=== PATIENT | male | born 1960 | race Caucasian/White ===

== ENCOUNTER 2017-06-16 20:29 | Emergency (ER) | payer OTHER ==
[~2017-06-16] VITALS: Ht 172.7 cm; Wt 89.0 kg
[2017-06-16 20:32] VITALS: Ht 172.7 cm; Wt 89.0 kg
[2017-06-16] MEDS ORDERED: FLUORESCEIN STRIP BOTH EYES STA (21:03)
[2017-06-16] MEDS ORDERED: TETRACAINE 0.5% 4 ML OPH BOTH EYES ONE (21:30)
[2017-06-16] MEDS ORDERED: METHYLPREDNISOLONE 125 MG INJ IM ONE (21:30)
[2017-06-16] MEDS ORDERED: ERYT1OIN6 OP (21:34)
--- NOTE | 2017-06-16 23:35 | ERD ---
ER Documentation Chief Complaint Date/Time DATE: 06/16/17 TIME: 23:33 Chief Complaint possible allergic reaction from cactus, body itchiness, eye itchy, no sob HPI 56-year-old male presents to the emergency department complaining of lateral itchy eyes after he touched at 2 PM. Patient states that he got some of the cactus plant on his arms and it became very itchy and he thinks the fumes got into his eyes. Patient denies any other medications. Denies shortness of breath or chest pain ROS All systems reviewed and are negative except as per history of present illness. Medications Home Meds Active Scripts Erythromycin Base (Erythromycin) 1 Gm Oint...g., 1 INCH OP QID for 7 Days Prov:MICHELLE BAILEY PA-C 06/16/17 Allergies Allergies: Coded Allergies: No Known Allergy (Unverified , 06/16/17) PMhx/Soc Medical and Surgical Hx: pt denies Medical Hx, pt denies Surgical Hx Hx Alcohol Use: Yes Hx Substance Use: No Hx Tobacco Use: No Smoking Status: Never smoker Physical Exam Vitals Vital Signs Date Time Temp Pulse Resp B/P Pulse Ox O2 Delivery O2 Flow Rate FiO2 06/16/17 20:32 99.4 78 20 177/90 99 Physical Exam Const: Developed well-nourished no acute distress Head: Atraumatic Eyes: Erythematous conjunctiva bilaterally, no evidence of foreign body or fluorescein uptake on exam, throat pupils equal reactive to light, extraocular motions are intact ENT: Normal External Ears, Nose and Mouth. Neck: Full range of motion..~ No meningismus. Resp: Clear to auscultation bilaterally Cardio: Regular rate and rhythm, no murmurs Abd: Soft, non tender, non distended. Normal bowel sounds Skin: No petechiae or rashes Back: No midline or flank tenderness Ext: No cyanosis, or edema Neur: Awake and alert Psych: Normal Mood and Affect Results 24 hrs Current Medications Medications (Trade) Dose Ordered Sig/Mandy Route PRN Reason Start Time Stop Time Status Last Admin Dose Admin Methylprednisolone Sodium Succinate (Solu-Medrol) 125 mg ONCE ONCE IM 06/16/17 21:30 06/16/17 21:31 DC 06/16/17 21:05 Tetracaine HCl (Tetracaine 0.5% Steri-Unit Ceci) 1 drop ONCE ONCE BOTH EYES 06/16/17 21:30 06/16/17 21:31 DC Fluorescein Sodium ([id number]-[id number]) 1 strip ONCE STAT BOTH EYES 06/16/17 21:03 06/16/17 21:04 DC Procedures/MDM This is a 56-year-old male presenting to the emergency department with likely an allergic reaction due to cactus fumes. There is no evidence of any foreign body or fluorescein uptake on examination. Tetracaine was applied in both eyes , patient received eye irrigation with 1 L of normal saline bilaterally. Patient significant feels a lot better. I discussed the patient to continue to follow-up with an regional telecommunications specialist within 24 hours. patient was given prescription for erythromycin ointment prophylaxis. Patient stable to be discharged home Departure Diagnosis: Primary Impression: Allergic reaction Condition: Stable Patient Instructions: First Aid: Allergic Reactions, Conjunctivitis, Allergic Referrals: KACIE DURAND MD (PCP) [facility] Hours: Mon - Sun 9:00 AM - 5:00 PM Additional Instructions: Visite a cesar tiffany middleton para un EXAMEN.Regrese a estas instalaciones si no se mejora yrn esperbamos o yrn le dijimos. Reagan toda la medicina sasha y yrn se le indic. Regrese a estas instalaciones si no se mejora yrn esperbamos o yrn le dijimos. MICHELLE BAILEY PA-C Jun 16, 2017 23:35
== END 2017-06-16 21:53 | disposition home or self-care (01) ==
LOC: FTE 20:29
DX: H57.8 Other specified disorders of eye and adnexa (principal); L29.9 Pruritus, unspecified
CPT/HCPCS: 99284; J2930